=== PATIENT | male | born 1955 | race Caucasian/White ===

== ENCOUNTER 2020-12-09 20:26 | Emergency (ER) | payer BC, SELFPAY ==
--- NOTE | ~2020-12-09 | CT_ITS ---
EXAMINATION: CT diagnostic chest wo con EXAM DATE: 12/09/2020 23:37 INDICATION: Trauma, fell off roof. Chest pain. TECHNIQUE: Spiral CT of the chest without contrast. Axial, coronal and sagittal images of the chest were reviewed. Coronal maximum intensity pixel images of chest reviewed. The dose-length product ( DLP) for this examination was 310.68 mGy-cm. The exposure was tailored according to patient size (au to mA exposure control), and iterative reconstruction (ASIR) was used as additional dose reduction te chnique. Correlation is made to chest x-ray 12/09. FINDINGS: The lungs are clear. There are no pleural or pericardial effusions. Tracheobronchial t ree is patent. There is no mediastinal, hilar or axillary lymphadenopathy. There is no pneumothor ax. Heart normal in size. There is mild coronary arterial calcification, arterial sclerosis. Upp er abdomen is unremarkable. No acute fractures identified. Mild to moderate thoracic disc disease. IMPRESSION: 1. No acute cardiopulmonary findings. Reviewed, dictated and finalized at [facility].
--- NOTE | ~2020-12-09 | CT_ITS ---
EXAMINATION: CT brain wo con DATE: 12/09/2020 21:06 INDICATION: Fall. Struck right side of head. Neck pain. TECHNIQUE: Computed tomography (CT) of the head was performed without intravenous contrast. The mA wa s adjusted according to patient size. Iterative reconstruction technique was employed. Exam dose: 68 1.00 mGy-cm total exam DLP. COMPARISON: None FINDINGS: No intracranial mass lesion or hemorrhage or cerebrovascular accident. No midline shift or mass effect. Normal ventricular size. No subdural or epidural hematoma. Blowout fracture of the right orbital floor with fluid level in the right maxillary sinus. No skull fracture or bone destruction is noted otherwise. Included paranasal sinuses and mastoid air cells are otherwise unremarkable.. IMPRESSION: Right orbital floor blowout fracture with hemorrhage into the right maxillary sinus Reviewed, dictated and finalized at [facility]. Reviewed, dictated and finalized at [facility]. IMPRESSION: Right orbital floor blowout fracture with hemorrhage into the righ t maxillary sinus
--- NOTE | ~2020-12-09 | XR_ITS ---
XR chest 1V DATE: 12/09/2020 21:14 INDICATION: Fall. Right rib pain TECHNIQUE: AP chest COMPARISON: None FINDINGS: Heart size is normal. No hilar or mediastinal enlargement. No pulmonary infiltrate or conso lidation, pleural effusion or pulmonary vascular congestion or pneumothorax is evident. No displaced rib fracture is evident on this limited single view. IMPRESSION: No active cardiopulmonary disease Reviewed, dictated and finalized at [facility].
--- NOTE | ~2020-12-09 | XR_ITS ---
XR shoulder LT min 2V DATE: 12/09/2020 21:13 INDICATION: Fall. Generalized left shoulder pain TECHNIQUE: 5 views COMPARISON: None FINDINGS: No fracture or dislocation, periosteal reaction or bone destruction. Normal alignment at th e acromion clavicular and glenohumeral joints. Mild degenerative change left acromioclavicular joint. No abnormal soft tissue calcification. IMPRESSION: Mild degenerative change at left, clavicular joint No fracture or dislocation Reviewed, dictated and finalized at [facility].
--- NOTE | ~2020-12-09 | CT_ITS ---
EXAMINATION: CT facial & cervical spine wo EXAM DATE: 12/09/2020 21:06 INDICATION: Fall, head injury. Neck pain. TECHNIQUE: Spiral CT of the facial bones was acquired in the axial plane. Coronal reformatted images were also reviewed. Spiral CT of the cervical spine was performed without contrast. Axial images we re reviewed. Coronal and sagittal reformatted images were also reviewed. The dose-length product (DL P) for this examination was 463.25 mGy-cm. The exposure was tailored according to patient size, and iterative reconstruction (ASIR) was used as additional dose reduction technique. There is no prior s tudy for comparison. FINDINGS: FACIAL CT: There is a right orbital inferior wall fracture with up to 6 mm inferior displacement of t he main wall fragment. The inferior rectus muscle maintains an intraorbital course. Small to moderate amount of blood within the right maxillary sinus. Tiny focus of extraconal intraorbital gas. No retr obulbar hemorrhage. Possible nondisplaced right maxillary sinus posterior wall fracture. Left orbit, nasal bones, mandible intact. CERVICAL CT: There is no evidence of acute cervical fracture. The odontoid process is intact. Pre-d ens space is normal. Prevertebral soft tissue is normal. There are no soft tissue abnormalities stevie ntified. There is no disc space widening or traumatic vertebral body subluxation suspected. Moderat e lower cervical disc disease. Mild to moderate cervical arthropathy. A detailed level by level eval uation of spondylosis can be added as addendum if requested. IMPRESSION: 1. Acute right orbital blowout fracture. 2. Possible right maxillary sinus posterior wall fracture. 3. Small to moderate hemorrhage in right maxillary sinus. 4. Cervical spondylosis without fracture. Reviewed, dictated and finalized at [facility].
--- NOTE | ~2020-12-09 | XR_ITS ---
XR pelvis 1-2V DATE: 12/09/2020 21:13 INDICATION: Fall off of roof TECHNIQUE: AP view of pelvis COMPARISON: None FINDINGS: Degenerative disc disease of the lumbar and lumbosacral spine and included L3-4 through L5- S1 levels. The pubic symphysis and sacroiliac joints are intact. No pelvic fracture or bone destruction is evide nt. No fracture or dislocation of either hip is evident on this limited single AP examination. IMPRESSION: Degenerative disease of the lumbar/lumbosacral spine No pelvic fracture is detected Reviewed, dictated and finalized at [facility].
[2020-12-09 20:41] VITALS: BP 155/94; PULSE 68; RESP 16; O2SAT 100
[2020-12-09] MEDS: MORPHINE SULFATE (*CRX) 4 MG/ML INJ 2 MG IV PUSH (21:51)
--- NOTE | 2020-12-09 22:10 | ED.FALL ---
HPI - Fall General Chief Complaint: Fall Stated Complaint: fell off roof Time Seen by Provider: 12/09/20 20:45 Source: RN notes reviewed History of Present Illness HPI Narrative: Patient presents emergency department from home for a fall patient states he was trimming some limbs on a tree while on his roof when he fell off of one-story roof. Patient states he does not have any loss of consciousness but family is present states he did seem mildly disoriented initially after the fall patient complains of pain in his posterior head and neck as well as left shoulder he was able to get up and ambulate and ambulated into the ED he denies being on any blood thinners he denies any chest pain, shortness of breath, abdominal pain numbness or tingling in the extremities or any other symptoms Related Data Home Medications Medication Instructions Recorded Confirmed amitriptyline 12/09/20 dextroamphetamine-amphetamine PO 12/09/20 [Adderall XR] duloxetine mg PO 12/09/20 gabapentin 12/09/20 hydroxychloroquine 12/09/20 prednisone 12/09/20 propranolol PO 12/09/20 Allergies Allergy/AdvReac Type Severity Reaction Status Date / Time No Known Allergies Allergy Verified 12/09/20 20:54 Review of Systems Review of Systems: Narrative: Gen.: Denies fevers or chills Eyes: Reports right eye pain ENT: Denies congestion Respiratory: Denies shortness of breath or cough CV: Denies chest pain or palpitations GI: Denies abdominal pain nausea, emesis or diarrhea denies bowel or bladder incontinence Musculoskeletal: D see HPI Neuro: Denies numbness, tingling, weakness or focal weakness Skin: Denies rash Except as documented, all other systems reviewed and negative PMFSH Past Medical History Medical History (Updated 12/10/20 @ 01:27 by John Correa DO) Hypothyroidism Social History Social History (Updated 12/10/20 @ 01:22 by John Correa DO) Smoking status: Never smoker Exam Narrative: Exam Narrative: APPEARANCE: Well appearing, no apparent distress, well-nourished. HEENT: normocephalic tender to palpation over the right inferior orbit nares patent with no bleeding oral mucosa moist. No tenderness over bilateral zygomatic arch. Full range of motion of jaw without pain. EYES: PERRL, EOMI, subconjunctival hemorrhage of the right eye over the medial lateral aspect full range of motion of the bilateral eyes with no pain NECK: C-collar present supple. No midline tenderness to palpation. Tender palpation bilateral para 2 muscles C5 through 7 RESPIRATORY: No respiratory distress. Clear to auscultation bilaterally CARDIOVASCULAR: Regular rate and rhythm without murmurs rubs or gallops. Chest: Tender to palpation of her anterior lateral chest wall in the region of ribs 8 through 10 ABDOMINAL: Soft, nontender, nondistended, no rebound or guarding no tenderness in the right upper quadrant MUSCULOSKELETAl: Moves all extremities. No tenderness to palpation of right upper and bilateral lower extremities. No clubbing cyanosis or edema tender palpation of the left anterior shoulder no tenderness over the lateral superior posterior shoulder no tenderness left elbow or wrist radial pulse 2+ neurovascular intact pain with movement of the left shoulder with abduction greater than 45 degrees or flexion greater than 45 degrees Back: No midline thoracic or lumbar tenderness to palpation Pelvis: Stable, nontender NEURO: Awake and alert ?4. Follows commands. Speech normal. No focal deficits. SKIN:: Warm, dry. Superficial abrasion over the right anterior forehead Course Course Emergency Course: Patient is able to get up and ambulate in the emergency department no difficulty visual acuity obtained and patient does wear glasses states he has not been change in while the right eye is better than left eye Discussed with Dr. Cooley presentation work-up discussed blowout fracture does agree to see patient in follow-up as an outpatient does not recommend any
[2020-12-09 22:38] VITALS: BP 142/73; PULSE 68; RESP 16; O2SAT 100
--- NOTE | 2020-12-09 23:22 | PC.NURSE ---
pt reporting pain in left shoulder at 8 out of 10 at this time, EDP notified.
[2020-12-09] MEDS: MORPHINE SULFATE (*CRX) 2 MG/ML INJ IV PUSH (23:27)
[2020-12-10 00:29] VITALS: BP 159/86; PULSE 69; RESP 14; O2SAT 100
[2020-12-10] MEDS: TETANUS,DIPHTHERIA,AC PERTUSSIS ADULT (0.5 ML) BOOSTRIX IM (01:33)
[2020-12-10 01:49] VITALS: BP 125/78; PULSE 65; RESP 16; O2SAT 98
== END 2020-12-10 01:51 | disposition home or self-care (01) ==
PROVIDERS: Emergency Provider Emergency Medicine
DX: S02.31XA Fracture of orbital floor, right side, initial encounter for closed fracture (principal); S40.012A Contusion of left shoulder, initial encounter; S20.211A Contusion of right front wall of thorax, initial encounter; Z23 Encounter for immunization; E03.9 Hypothyroidism, unspecified; W13.2XXA Fall from, out of or through roof, initial encounter
CPT/HCPCS: 70450; 70486; 71045; 71250; 72125; 72170; 73030; 90471; 90715; 96374; 96376; 99284; A4565; J2270; L0140

== ENCOUNTER 2024-02-09 14:09 | Outpatient (CLI) | payer BC, SELFPAY ==
--- NOTE | ~2024-02-09 | CT_ITS ---
Non-contrast CT scan of the Abdomen and Pelvis Clinical indication: Kidney stones Technique: 2.5 mm axial scans were obtained through the abdomen and pelvis without intravenous or or al contrast. Dose reduction technique was used on this scan by utilizing automated exposure control a nd iterative reconstruction technique. The dose-length product (DLP) was 193.34 mGy-cm. Findings: Images through the lung bases reveal no abnormalities. 7 mm distal left ureteral stone present, just near the left UVJ. There is probable additional 1-2 mm distal left ureteral stone. No left hydronephrosis. Additional small stones in the left kidney are pr esent, measuring up to 3 mm. No right renal or right ureteral stones seen. The liver, spleen, pancreas, gallbladder, and adrenals appear normal. There is no aortic aneurysm. There is no evidence of bowel obstruction. Images through the pelvis were performed. There is no evidence of ascites or lymphadenopathy. Urinary bladder unremarkable. No pelvic mass evident. No ascites. Small fat-containing left inguinal hernia noted. Impression: Distal left ureteral stones measuring up to 7 mm. Additional small stones within the left kidney. No left hydronephrosis. Small fat-containing left inguinal hernia. Reviewed, dictated and finalized at [facility]. Impression: Distal left ureteral stones measuring up to 7 mm. Additional small stones withi n the left kidney. No left hydronephrosis. Small fat-containing left inguinal hernia.
== END 2024-02-09 14:10 | disposition home or self-care (01) ==
LOC: ANHIMG 14:10
PROVIDERS: Visit Provider Physician Assistant
DX: N20.0 Calculus of kidney (principal); K40.90 Unilateral inguinal hernia, without obstruction or gangrene, not specified as recurrent; N20.1 Calculus of ureter
CPT/HCPCS: 74176